=== PATIENT | male | born 1965 | race Caucasian/White ===

== ENCOUNTER 2019-11-09 09:12 | Emergency (ER) | payer MEDICAID ==
--- NOTE | 2019-11-09 09:45 | EDM.PDOC ---
ED HPI GENERAL MEDICAL PROBLEM - General Chief Complaint: Abdominal Pain Stated Complaint: ABDOMINAL PAIN Time Seen by Provider: 11/09/19 09:28 Source of Information: Reports: Patient History Limitations: Reports: No Limitations - History of Present Illness INITIAL COMMENTS - FREE TEXT/NARRATIVE: The patient presents with left sided abdominal pain that started last night. He says it feels like he has a pulled muscle. He had similar pain after surgery for a ventral hernia. He has no nausea or vomiting. He still has his gallbladder and appendix. He has no fever or chills. He has no dysuria or hematuria. Onset: Gradual Duration: Day(s): (Last night) Location: Reports: Abdomen Quality: Reports: Sharp Severity: Moderate Improves with: Reports: None Worsens with: Reports: None Associated Symptoms: Reports: No Other Symptoms Left Abdominal Pain Score (Numeric/FACES): 8 - Related Data Allergies Allergy/AdvReac Type Severity Reaction Status Date / Time No Known Allergies Allergy Verified 11/09/19 09:28 Home Meds: Home Meds Amoxicillin/Potassium Clav [Augmentin 875-125 Tablet] 1 each PO BID #14 tablet 11/09/19 [Rx] Aspirin 11/09/19 [History] Statin Cholesterol Medication 11/09/19 [History] Varenicline Tartrate [Chantix] 11/09/19 [History] metFORMIN [Glucophage XR] 11/09/19 [History] Social & Family History - Tobacco Use Smoking Status *Q: Current Every Day Smoker Years of Tobacco use: 38 Packs/Tins Daily: 0.1 - Caffeine Use Caffeine Use: Reports: Coffee, Energy Drinks, Soda, Tea - Recreational Drug Use Recreational Drug Use: No ED ROS GENERAL - Review of Systems Review Of Systems: See Below Constitutional: Reports: No Symptoms HEENT: Reports: No Symptoms Respiratory: Reports: No Symptoms Cardiovascular: Reports: No Symptoms Endocrine: Reports: No Symptoms GI/Abdominal: Reports: Abdominal Pain. Denies: Diarrhea, Nausea, Vomiting : Reports: No Symptoms Musculoskeletal: Reports: No Symptoms ED EXAM, GI/ABD - Physical Exam Exam: See Below Exam Limited By: No Limitations General Appearance: Alert, No Apparent Distress Ears: Normal External Exam Nose: Normal Inspection Head: Atraumatic, Normocephalic Neck: Normal Inspection Respiratory/Chest: No Respiratory Distress, Lungs Clear, Normal Breath Sounds Cardiovascular: Regular Rate, Rhythm, No Edema, No Murmur GI/Abdominal Exam: Soft, No Organomegaly, No Mass, Tender (Mild pain to the left lower abdomen) Course - Vital Signs Last Recorded V/S: Last Vital Signs Temp 96.2 F 11/09/19 09:25 Pulse 73 11/09/19 09:25 Resp 16 11/09/19 09:25 BP 131/80 11/09/19 09:25 Pulse Ox 97 11/09/19 09:25 - Orders/Labs/Meds Orders: Active Orders 24 hr Category Date Time Status Peripheral IV Care [RC] . DIRECTED Care 11/09/19 09:49 Active Ketorolac [Toradol] Med 11/09/19 12:37 Once 30 mg IVPUSH ONETIME ONE Sodium Chloride 0.9% [Saline Flush] Med 11/09/19 09:49 Active 10 ml FLUSH ASDIRECTED PRN Sodium Chloride 0.9% [Saline Flush] Med 11/09/19 10:01 Active 10 ml FLUSH ONETIME PRN ED Antiemetic Medication Reflex [OM.PC] Stat Oth 11/09/19 09:50 Ordered Peripheral IV Insertion Adult [OM.PC] Stat Oth 11/09/19 09:49 Ordered Medication Orders Ketorolac Tromethamine (Toradol) 30 mg IVPUSH ONETIME ONE Stop: 11/09/19 12:38 Sodium Chloride (Saline Flush) 10 ml FLUSH ASDIRECTED PRN PRN Reason: Keep Vein Open Last Admin: 11/09/19 10:08 Dose: 10 ml Sodium Chloride (Saline Flush) 10 ml FLUSH ONETIME PRN PRN Reason: IV FLUSH Last Admin: 11/09/19 11:15 Dose: 10 ml Labs: Laboratory Tests 11/09/19 11/09/19 11/09/19 Range/Units 10:00 10:00 11:43 WBC 9.74 H (4.23-9.07) K/mm3 RBC 5.26 (4.63-6.08) M/mm3 Hgb 15.4 (13.7-17.5) gm/dl Hct 45.9 (40.1-51.0) % MCV 87.3 D (79.0-92.2) fl MCH 29.3 (25.7-32.2) pg MCHC 33.6 (32.2-35.5) g/dl RDW Std Deviation 52.2 H (35.1-43.9) fL Plt Count 272 (163-337) K/mm3 MPV 10.5 (9.4-12.3) fl Neut % (Auto) 68.8 H (34.0-67.9) % Lymph % (Auto) 19.8 L (21.8-53.1) % [place] % (Auto) 7.6 (5.3-12.2) % Eos % (Auto) 3.0 (0.8-7.0) Baso % (Auto) 0.6 (0.1-1.2) % Neut # (Auto) 6.70 H (1.78-5.38) K/mm3 Lymph # (Auto) 1.93 (1.32-3.57) K/mm3 [place] # (Auto) 0.74 (0.30-0.82) K/mm3 Eos # (Auto) 0.29 (0.04-0.54) K/mm3 Baso # (Auto) 0.06 (0.01-0.08) K/mm3 Sodium 143 (136-145) mEq/L Potassium 4.2 (3.5-5.1) mEq/L Chloride 107 (98-107) mEq/L Carbon Dioxide 27 (21-32) mEq/L Anion Gap 13.2 (5-15) BUN 13 (7-18) mg/dL Creatinine 0.8 (0.7-1.3) mg/dL Est Cr Clr Drug Dosing 79.63 mL/min Estimated GFR (MDRD) > 60 (>60) mL/min BUN/Creatinine Ratio 16.3 (14-18) Glucose 97 (74-106) mg/dL Calcium 8.9 (8.5-10.1) mg/dL Total Bilirubin 0.3 (0.2-1.0) mg/dL AST 17 (15-37) U/L ALT 44 (16-63) U/L Alkaline Phosphatase 96 (46-116) U/L Total Protein 7.7 (6.4-8.2) g/dl Albumin 3.5 (3.4-5.0) g/dl Globulin 4.2 gm/dL Albumin/Globulin Ratio 0.8 L (1-2) Lipase 63 L (73-393) U/L Urine Color Yellow (Yellow) Urine Appearance Clear (Clear) Urine pH 6.5 (5.0-8.0) Ur Specific [place] 1.020 (1.005-1.030) Urine Protein Trace H (Negative) Urine Glucose (UA) Negative (Negative) Urine Ketones Negative (Negative) Urine Occult Blood Trace-intact H (Negative) Urine Nitrite Negative (Negative) Urine Bilirubin Negative (Negative) Urine Urobilinogen 0.2 (0.2-1.0) Ur Leukocyte Esterase Negative (Negative) Urine RBC 5-10 H (0-5) /hpf Urine WBC 0-5 (0-5) /hpf Ur Squamous Epith Cells 0-5 (0-5) /hpf Urine Bacteria Few (FEW) /hpf Urine Mucus Few (FEW) /hpf Meds: Medications Generic Name Dose Route Start Last Admin Trade Name Freq PRN Reason Stop Dose Admin Ketorolac Tromethamine 30 mg 11/09/19 12:37 Toradol IVPUSH 11/09/19 12:38 ONETIME ONE Sodium Chloride 10 ml 11/09/19 09:49 11/09/19 10:08 Saline Flush FLUSH 10 ml ASDIRECTED PRN Administration Keep Vein Open Sodium Chloride 10 ml 11/09/19 10:01 11/09/19 11:15 Saline Flush FLUSH 10 ml ONETIME PRN Administration IV FLUSH Discontinued Medications Generic Name Dose Route Start Last Admin Trade Name Freq PRN Reason Stop Dose Admin Diatrizoate Meglum/Diatrizoate Sod 120 ml 11/09/19 10:01 11/09/19 11:15 Gastrografin 37% PO 11/09/19 10:02 90 ml ONETIME ONE Administration Hydromorphone HCl 1 mg 11/09/19 09:51 11/09/19 10:08 Dilaudid IVPUSH 11/09/19 09:52 1 mg ONETIME ONE Administration Sodium Chloride 1,000 mls @ 1,000 mls/hr 11/09/19 09:49 11/09/19 10:06 Normal Saline IV 11/09/19 10:48 1,000 mls/hr .BOLUS STA Administration Iopamidol 100 ml 11/09/19 10:01 11/09/19 11:14 Isovue-300 (61%) IVPUSH 11/09/19 10:02 100 ml ONETIME ONE Administration Ondansetron HCl 4 mg 11/09/19 09:49 11/09/19 10:05 Zofran IVPUSH 11/09/19 09:50 4 mg ONETIME ONE Administration - Re-Assessments/Exams Free Text/Narrative Re-Assessment/Exam: 11/09/19 12:41 I ordered an IV NS 1L bolus, zofran 4mg IV, dilaudid 1mg IV, labs, UA and a CT of his abdomen and pelvis with IV and oral contrast. His WBC was elevated slightly at 9.74. His CMP looks good. His lipase is low at 63. His UA shows no UTI. His CT shows slight inflammatory change around a diverticuli within the descending colon suspicious for mild diverticulitis. Other findings as noted above believed to be incidental. He still has some pain. I gave him some tordal. 11/09/19 12:44 I will get him on some augmentin. Departure - Departure Time of Disposition: 12:45 Disposition: Home, Self-Care 01 Condition: Good Clinical Impression: Diverticulitis - Discharge Information *PRESCRIPTION DRUG MONITORING PROGRAM REVIEWED*: Not Applicable *COPY OF PRESCRIPTION DRUG MONITORING REPORT IN PATIENT ANDRÉS: Not Applicable Prescriptions: Amoxicillin/Potassium Clav [Augmentin 875-125 Tablet] 1 each PO BID #14 tablet Referrals: Carol Ann Casas, TIKI [Primary Care Provider] - 1 Week Forms: ED Department Discharge Additional Instructions: Take the augmentin daily for 7 days. Avoid any food with small nuts or seeds. Take tylenol or motrin for pain. If that does not work, try the hydrocodone. Please return if you are worse. Sepsis Event Note - Evaluation Sepsis Screening Result: No Definite Risk - Focused Exam Vital Signs: Vital Signs Temp Pulse Resp BP Pulse Ox 11/09/19 09:25 96.2 F 73 16 131/80 97 Date Exam was Performed: 11/09/19 Time Exam was Performed: 12:37 - My Orders Last 24 Hours: My Active Orders 11/09/19 09:49 Peripheral IV Care [RC] . DIRECTED Sodium Chloride 0.9% [Saline Flush] 10 ml FLUSH ASDIRECTED PRN Peripheral IV Insertion Adult [OM.PC] Stat 11/09/19 09:50 ED Antiemetic Medication Reflex [OM.PC] Stat 11/09/19 10:01 Sodium Chloride 0.9% [Saline Flush] 10 ml FLUSH ONETIME PRN 11/09/19 12:37 Ketorolac [Toradol] 30 mg IVPUSH ONETIME ONE - Assessment/Plan Last 24 Hours: My Active Orders 11/09/19 09:49 Peripheral IV Care [RC] . DIRECTED Sodium Chloride 0.9% [Saline Flush] 10 ml FLUSH ASDIRECTED PRN Peripheral IV Insertion Adult [OM.PC] Stat 11/09/19 09:50 ED Antiemetic Medication Reflex [OM.PC] Stat 11/09/19 10:01 Sodium Chloride 0.9% [Saline Flush] 10 ml FLUSH ONETIME PRN 11/09/19 12:37 Ketorolac [Toradol] 30 mg IVPUSH ONETIME ONE
[2019-11-09] MEDS ORDERED: Ondansetron 4 MG/2 ML SDV IVPUSH ONE (09:49)
[2019-11-09] MEDS ORDERED: Sodium Chloride 0.9% 10 ML Syringe FLUSH PRN ×2 (09:49→10:01)
[2019-11-09] MEDS ORDERED: Sodium Chloride 0.9% 1,000 ML IV STA (09:49)
[2019-11-09] MEDS ORDERED: HYDROmorphone 1 MG/ML Syringe IVPUSH ONE (09:51)
[2019-11-09] MEDS ORDERED: Iopamidol 612 MG/ML 100 ML Bottle IVPUSH ONE (10:01)
[2019-11-09] MEDS ORDERED: Diatrizoate Meglumine/Diatrizoate Sodium 37% 120 ML Bottle PO ONE (10:01)
--- NOTE | 2019-11-09 12:13 | CT ---
CT abdomen and pelvis Technique: Multiple axial sections were obtained from above the dome of the diaphragm inferiorly through the pubic symphysis. Intravenous and oral contrast was utilized. Delayed images were also obtained through the bladder. Comparison: No prior abdominal imaging is available. Findings: Visualized lung bases show a small pleural-based nodule measuring 3 mm. This is likely incidental. Small amount of extrapleural fat is noted posteriorly within both lung bases which is incidental. Fatty infiltration is noted within the liver. No focal abnormality is appreciated within the liver. Spleen appears within normal limits. Adrenal glands show no nodule. Pancreas is within normal limits. Gallbladder contains no calcified gallstones. Kidneys show symmetric contrast enhancement without hydronephrosis or mass. Aorta shows no aneurysm. No retroperitoneal adenopathy or mesenteric abnormalities are seen. Appendix is seen which is normal in size. No pelvic mass or adenopathy is seen. No free fluid is seen. Diverticuli are seen within the descending and sigmoid colon. Slight inflammatory change is seen around the diverticuli within the distal descending colon suspicious for diverticulitis. No additional inflammatory change is seen. Delayed images shows contrast within two left-sided ureters which join distally. Single right-sided opacified ureter is seen. Contrast is noted within the bladder. Bone window settings were reviewed which show spondylotic defects at L5-S1 with minimal spondylolisthesis. Disc at L5-S1 shows vacuum phenomena. Other less prominent degenerative change is scattered within the spine. Impression: 1. Slight inflammatory change around a diverticuli within the descending colon suspicious for mild diverticulitis. 2. Other findings as noted above believed to be incidental. Diagnostic code #3 This report was dictated in [place] Standard Time
[2019-11-09] MEDS ORDERED: Ketorolac 30 MG/ML SDV IVPUSH ONE (12:37)
== END 2019-11-09 12:54 | disposition home or self-care (01) ==
LOC: JD.ED 09:12
DX: K57.32 Diverticulitis of large intestine without perforation or abscess without bleeding (principal); F17.210 Nicotine dependence, cigarettes, uncomplicated; Z79.82 Long term (current) use of aspirin
CPT/HCPCS: 36415; 74177; 80053; 81001; 83690; 85025; 96361; 96374; 96375; 99284; J1170; J1885; J2405; J7030; Q9963; Q9967

== ENCOUNTER 2020-01-18 09:40 | Day surgery (SDC) | payer MEDICAID ==
[~2020-01-18 09:40] MED LIST: Lactated Ringers 1,000 ML IV SCH; Lidocaine 1%/Sod Bicarbonate in NS 8.4% 1 ML Syringe IDERM PRN; Sodium Chloride 0.9% 10 ML Syringe FLUSH PRN
--- NOTE | 2020-01-18 10:03 | PCM.PREANE ---
Preanesthetic Assessment - Anesthesia/Transfusion/Family Hx Anesthesia History: Prior Anesthesia Without Reaction Family History of Anesthesia Reaction: No Transfusion History: No Prior Transfusion(s) Intubation History: Unknown - Review of Systems General: No Symptoms Pulmonary: No Symptoms (Smoker:2 ppd times 30 years STEPHANIE: BIPAP COPD: patient denies use of albuterol) Cardiovascular: No Symptoms, Dyspnea on Exertion Gastrointestinal: No Symptoms Neurological: No Symptoms Other: Reports: Easy Bruising, Diabetes (BS @ 1015 =92), Liver Problems ( History of fatty liver), Neck Pain - Physical Assessment NPO Status Date: 01/17/20 NPO Status Time: 08:00 Vital Signs: HR: 62 BP: 129/81 Sat: 96% Temp: 97.6 Resp: 20 Height: 1.78 m Weight: 140.16 kg ASA Class: 3 Mental Status: Alert & Oriented x3 Airway Class: Mallampati = 2 Dentition: Reports: Edentulous Thyro-Mental Finger Breadths: 3 Mouth Opening Finger Breadths: 3 ROM/Head Extension: Full Lungs: Clear to Auscultation, Normal Respiratory Effort Cardiovascular: Regular Rate, Regular Rhythm, No Murmurs - Lab Values: All labs reviewed and noted and within acceptable ranges to proceed with scheduled procedure. - Imaging/EKG Impressions: EKG: SR low voltage in precordial leads rate=74 Echocardiogram: EF: 55-60%, technically very difficult study due to body habitus , and inability to lie still. - Allergies Allergies/Adverse Reactions: Allergies Allergy/AdvReac Type Severity Reaction Status Date / Time No Known Allergies Allergy Verified 11/09/19 09:28 - Anesthesia Plan Pre-Op Medication Ordered: None - Acknowledgements Anesthesia Type Planned: MAC Pt an Appropriate Candidate for the Planned Anesthesia: Yes Alternatives and Risks of Anesthesia Discussed w Pt/Guardian: Yes Pt/Guardian Understands and Agrees with Anesthesia Plan: Yes PreAnesthesia Questionnaire Cardiovascular History: Reports: High Cholesterol Endocrine/Metabolic History: Reports: Other (See Below) Other Endocrine/Metabolic History: prediabetic - pt is on metformin - Past Surgical History GI Surgical History: Reports: Hernia, Abdominal - HOME MEDS Home Medications: Home Meds Amoxicillin/Potassium Clav [Augmentin 875-125 Tablet] 1 each PO BID #14 tablet 11/09/19 [Rx] Aspirin 11/09/19 [History] Statin Cholesterol Medication 11/09/19 [History] Varenicline Tartrate [Chantix] 11/09/19 [History] metFORMIN [Glucophage XR] 11/09/19 [History] - CURRENT (IN HOUSE) MEDS Current Meds: Current Medications Lactated Ringer's (Ringers, Lactated) 1,000 mls @ 125 mls/hr IV ASDIRECTED DEREK Stop: 01/18/20 23:00 Lidocaine/Sodium Bicarbonate (Buffered Lidocaine 1% In Ns 8.4%) 0.25 ml IDERM ONETIME PRN PRN Reason: Prior to IV Start Stop: 01/18/20 18:00 Sodium Chloride (Saline Flush) 10 ml FLUSH ASDIRECTED PRN PRN Reason: Keep Vein Open Stop: 01/18/20 18:00
[2020-01-18] MEDS ORDERED: Lidocaine 1% 4 ML ONE (12:14)
[2020-01-18] MEDS ORDERED: Midazolam 1 MG/ML 2 ML SDV ONE (12:14)
[2020-01-18] MEDS ORDERED: Propofol 200 MG/20 ML SDV ONE ×2 (12:14→12:42)
[2020-01-18] MEDS ORDERED: fentaNYL 100 MCG/2 ML SDV ONE ×2 (12:14→12:59)
[2020-01-18] MEDS ORDERED: Ketamine 500 mg/10 ML MDV ONE (12:26)
[2020-01-18] MEDS ORDERED: Lidocaine 1% with EPINEPHrine 1:100,000 20 ML MDV ONE (12:27)
[2020-01-18] MEDS ORDERED: Labetalol 100 MG/20 ML MDV ONE (12:56)
--- NOTE | 2020-01-18 13:34 | PCM48HPAN ---
Post Anesthesia Note - EVALUATION WITHIN 48HRS OF ANESTHETIC Vital Signs in Normal Range: Yes Patient Participated in Evaluation: Yes Respiratory Function Stable: Yes Airway Patent: Yes Cardiovascular Function Stable: Yes Hydration Status Stable: Yes Pain Control Satisfactory: Yes Nausea and Vomiting Control Satisfactory: Yes Mental Status Recovered: Yes Vital Signs: Last Vital Signs Temp 36.4 C 01/18/20 09:50 Pulse 62 01/18/20 09:50 Resp 20 01/18/20 09:50 BP 129/81 01/18/20 09:50 Pulse Ox 96 01/18/20 09:50
--- NOTE | 2020-01-18 14:04 | PROC ---
DATE OF OPERATION: 01/18/2020 SURGEON: Ran Murray MD PREOPERATIVE DIAGNOSES: 1. Need for screening colonoscopy. 2. Symptomatic perianal skin tag. POSTOPERATIVE DIAGNOSES: 1. Diverticulosis. 2. Grade 2 hemorrhoids. 3. Polyps x3. OPERATION PERFORMED: 1. Colonoscopy with polypectomy. 2. Excision of anal skin tag. ESTIMATED BLOOD LOSS: Minimal. ANESTHESIA: Local anesthetic with monitored anesthesia care. INDICATIONS AND CONSENT: The patient is a 54-year-old male with history of morbid obesity and obstructive sleep apnea. The patient has been wanting to have a screening colonoscopy for a long time, but he has been unable to do that because he needed clearance from his ice scraper. He eventually saw the ice scraper and got cleared for surgery. We saw the patient, discussed the risks, benefits, and alternatives for colonoscopy. All questions were answered. Of note, the patient mentioned that he had a symptomatic anal tag that causes some bleeding and it is difficult to keep clean because of this tag. Therefore, he requested that this tag be removed. We also talked about risks, benefits, and alternatives for this procedure and informed consent for both procedures was signed. DETAILS OF THE PROCEDURE: The patient was taken to the operating room, placed in a left lateral decubitus position. Following induction of monitored anesthesia care, we began with perianal exam. There was a skin tag at 6 to 8 o'clock position in the anal canal. Otherwise, perianal exam was normal. Digital rectal exam was normal. Scope was inserted and taken all the way to the cecum and the appendiceal orifice and ileocecal valve were photographed. Prep was adequate to be able to visualize polyps greater than 5 mm. Therefore, with irrigation, the cecum was examined. There was one 4 mm polyp that was removed with cold snare. The rest of the cecum was normal. The hepatic flexure had one 1 cm polyp that was pedunculated. This was removed with hot snare. Then, withdrawal continues. At the transverse colon, there was another 1 cm pedunculated polyp that was removed with hot snare. EBL was minimal. Descending colon and sigmoid colon had scattered diverticulosis. On retroflexion, the rectum had grade 2 to grade 3 hemorrhoids. There was no stigmata of bleeding. There were no other lesions. The air was suctioned from the colon and the scope was withdrawn. Next, we began prepping for excision of anal skin tag. To do this, the perianal skin was prepped with Betadine. We changed into sterile gloves. The 1% lidocaine with epinephrine was injected around this lesion. Then, a #15 blade was used to excise the lesion. Hemostasis was controlled with silver nitrate enough to be able to place some sutures. 2-0 chromic sutures were used to suture this wound, closed in 1 layer. The defect was about 1.5 cm x 2 cm. Once the sutures were placed, hemostasis was ensured and this marked the end of the procedure. At the end of the procedure, all instruments were correct and were disposed off appropriately. The patient to be allowed to discharge home. The patient to come back in 2 weeks for postop check. In the meantime, the patient to do sitz baths and take stool softeners. The patient can call to my clinic with any problems. MAAME /[id number] SHAY
== END 2020-01-18 14:09 | disposition home or self-care (01) ==
LOC: JD.SDS 09:40
PROVIDERS: ATTEND Surgery
DX: Z12.11 Encounter for screening for malignant neoplasm of colon (principal); D12.0 Benign neoplasm of cecum; D12.3 Benign neoplasm of transverse colon; K57.30 Diverticulosis of large intestine without perforation or abscess without bleeding; K64.4 Residual hemorrhoidal skin tags; K64.2 Third degree hemorrhoids; E11.9 Type 2 diabetes mellitus without complications; E78.5 Hyperlipidemia, unspecified; E66.01 Morbid (severe) obesity due to excess calories; F17.210 Nicotine dependence, cigarettes, uncomplicated; Z99.89 Dependence on other enabling machines and devices; Z79.899 Other long term (current) drug therapy; Z79.82 Long term (current) use of aspirin; Z79.84 Long term (current) use of oral hypoglycemic drugs
CPT/HCPCS: 45385; 82962; J2001; J2250; J2704; J3010; J3490; J7120; 00812

== ENCOUNTER 2021-05-17 14:00 | Emergency (ER) | payer MEDICAID ==
[2021-05-17] MEDS ORDERED: Ketorolac 30 MG/ML SDV IM ONE (15:34)
[2021-05-17] MEDS ORDERED: Cyclobenzaprine 10 MG Tab PO ONE (15:34)
--- NOTE | 2021-05-17 16:01 | EDM.PDOC ---
ED HPI GENERAL MEDICAL PROBLEM - General Chief Complaint: Back Pain or Injury Stated Complaint: LT SHOULDER PAIN Time Seen by Provider: 05/17/21 15:06 Source of Information: Reports: Patient History Limitations: Reports: No Limitations - History of Present Illness INITIAL COMMENTS - FREE TEXT/NARRATIVE: 55 yo M with L mid back pain. Started gradually this morning and is now severe. No apparent provoking factor - no heavy lifting or unusual exercise, no recent trauma, pain gradually worsened over the course of today. Pain is worse with movements and worse with deep inspiration. No anterior chest pain. No hx similar symptoms previously. Did not take anything for pain prior to comingto the ED, did take a shot of whiskey. Denies fever/recent illness, +chronic cough/no jaeger e. Treatments ELECTRICAL ESTIMATOR: Reports: Other Medication(s) Other Treatments ELECTRICAL ESTIMATOR: whiskey Left Posterior Shoulder Pain Score (Numeric/FACES): 9 - Related Data Allergies Allergy/AdvReac Type Severity Reaction Status Date / Time No Known Allergies Allergy Verified 05/17/21 15:00 Home Meds: Home Meds Aspirin 81 mg PO DAILY 11/09/19 [History] metFORMIN [Glucophage XR] 1,000 mg PO BID 11/09/19 [History] Albuterol Sulfate [Albuterol Sulfate Hfa] 1 puff INH ASDIRECTED 01/18/20 [History] atorvaSTATin Calcium [Lipitor] 40 mg PO DAILY 01/18/20 [History] Cyclobenzaprine [Flexeril] 10 mg PO TID PRN #12 tab 05/17/21 [Rx] Ibuprofen 600 mg PO TID PRN #24 tablet 05/17/21 [Rx] Lidocaine/Transparent Dressing [Lidocaine 4% Kit] 1 each TP DAILY PRN #10 kit 05/17/21 [Rx] Past Medical History HEENT History: Reports: None Cardiovascular History: Reports: High Cholesterol Respiratory History: Reports: Sleep Apnea Gastrointestinal History: Reports: None Genitourinary History: Reports: None Musculoskeletal History: Reports: None Neurological History: Reports: None Psychiatric History: Reports: None Endocrine/Metabolic History: Reports: Other (See Below) Other Endocrine/Metabolic History: prediabetic - pt is on metformin Hematologic History: Reports: None Immunologic History: Reports: None Oncologic (Cancer) History: Reports: None Dermatologic History: Reports: None - Infectious Disease History Infectious Disease History: Reports: None - Past Surgical History Head Surgeries/Procedures: Reports: None HEENT Surgical History: Reports: Oral Surgery GI Surgical History: Reports: Hernia, Abdominal Social & Family History - Family History Family Medical History: No Pertinent Family History - Tobacco Use Tobacco Use Status *Q: Current Every Day Tobacco User Years of Tobacco use: 30 Packs/Tins Daily: 1 - Caffeine Use Caffeine Use: Reports: Coffee, Energy Drinks, Soda, Tea - Recreational Drug Use Recreational Drug Use: Yes Drug Use in Last 12 Months: No Recreational Drug Type: Reports: Marijuana/Hashish, Methamphetamine Recreational Drug Use Frequency: Not Used In Over 1 Year ED ROS GENERAL - Review of Systems Review Of Systems: See Below Constitutional: Denies: Fever HEENT: Denies: No Symptoms Respiratory: Denies: Shortness of Breath, Cough Cardiovascular: Denies: Chest Pain Endocrine: Reports: No Symptoms GI/Abdominal: Denies: Abdominal Pain Musculoskeletal: Reports: Back Pain Skin: Reports: No Symptoms Neurological: Reports: No Symptoms ED EXAM, GENERAL - Physical Exam Exam: See Below Exam Limited By: No Limitations General Appearance: Alert, WD/WN, No Apparent Distress Eye Exam: Bilateral Eye: Normal Inspection Course - Vital Signs Last Recorded V/S: Last Vital Signs Temp 36.6 C 05/17/21 15:06 Pulse 70 05/17/21 15:06 Resp 20 05/17/21 15:06 BP 146/82 H 05/17/21 15:06 Pulse Ox 99 05/17/21 15:06 - Orders/Labs/Meds Orders: Active Orders 24 hr Category Date Time Status Chest 2V [CR] Stat Exams 05/17/21 15:34 Taken Meds: Medications Discontinued Medications Generic Name Dose Route Start Last Admin Trade Name Grabiel PRN Reason Stop Dose Admin Bupivacaine HCl 10 ml 05/17/21 17:28 05/17/21 17:29 Bupivacaine 0.5% 10 Ml Sdv INJECT 05/17/21 17:29 10 ml ONETIME ONE Administration Bupivacaine HCl Confirm 05/17/21 17:25 05/17/21 17:30 Bupivacaine 0.5% 10 Ml Sdv Administered 05/17/21 17:26 10 ml Dose Administration 10 ml .ROUTE .STK-MED ONE Bupivacaine HCl/Epinephrine Bitart 30 ml 05/17/21 17:13 05/17/21 17:30 Bupivacaine 0.5%/Epinephrine 1:200,000 30 Ml Sdv INJECT 05/17/21 17:14 Not Given ONETIME ONE Cyclobenzaprine HCl 10 mg 05/17/21 15:34 05/17/21 15:54 Cyclobenzaprine 10 Mg Tab PO 05/17/21 15:35 10 mg ONETIME ONE Administration Ketorolac Tromethamine 30 mg 05/17/21 15:34 05/17/21 15:55 Ketorolac 30 Mg/Ml Sdv IM 05/17/21 15:35 30 mg ONETIME ONE Administration Lidocaine 1 each 05/17/21 16:30 05/17/21 16:30 Lidocaine 4% 1 Each Patch TOP 05/17/21 16:31 1 each ONETIME ONE Administration Lidocaine/Epinephrine 10 ml 05/17/21 17:14 05/17/21 17:31 Lidocaine 2% With Epinephrine 1:200,000 20 Ml Sdv INJECT 05/17/21 17:15 Not Given ONETIME ONE Lidocaine/Epinephrine Confirm 05/17/21 17:25 05/17/21 17:29 Lidocaine 1% With Epinephrine 1:100,000 10 Ml Mdv Administered 05/17/21 17:26 10 ml Dose Administration 10 ml .ROUTE .[facility] ONE - Re-Assessments/Exams Free Text/Narrative Re-Assessment/Exam: 05/17/21 16:35 CXR shows no acute abnormality. Suspect musculoskeletal source of pain. Pain is very localized to posterior parathoracic musculature. Discussed home care with patient and ED return precautions. 05/17/21 17:24 Patient is still in significant pain. He has very specific point TTP in posterior thoracic paraspinal musculature around T10 level. Discussed risks/benefits of trigger point injection and patient would like to proceed. Procedure of Area of maximal pain identified. Skin cleansed with chlorprep. Injected bupivicaine 0.5% + lidocaine 1% with epi, approx 3 cc total. 05/17/21 17:55 05/17/21 18:28 Patient felt significantly better after trigger point injection. Rex addison, discussed ED return precautions. Departure - Departure Time of Disposition: 16:36 Disposition: Home, Self-Care 01 Clinical Impression: Strain of thoracic paraspinal muscles excluding T1 and T2 levels Qualifiers: Encounter type: initial encounter Qualified Code(s): S29.012A - Strain of muscle and tendon of back wall of thorax, initial encounter - Discharge Information Prescriptions: Cyclobenzaprine [Flexeril] 10 mg PO TID PRN #12 tab PRN Reason: Muscle Spasm - Painful Ibuprofen 600 mg PO TID PRN #24 tablet PRN Reason: Pain Lidocaine/Transparent Dressing [Lidocaine 4% Kit] 1 each TP DAILY PRN #10 kit PRN Reason: Pain Instructions: Thoracic Strain, [id number] Referrals: Carol Ann Casas BINDERY CUTTER OPERATOR [Primary Care Provider] - Forms: ED Department Discharge Sepsis Event Note (ED) - Evaluation Sepsis Screening Result: No Definite Risk - Focused Exam Vital Signs: Vital Signs Temp Pulse Resp BP Pulse Ox 05/17/21 15:06 36.6 C 70 20 146/82 H 99 - My Orders Last 24 Hours: My Active Orders 05/17/21 15:34 Chest 2V [CR] Stat - Assessment/Plan Last 24 Hours: My Active Orders 05/17/21 15:34 Chest 2V [CR] Stat
[2021-05-17] MEDS ORDERED: Lidocaine 4% 1 each Patch TOP ONE (16:30)
[2021-05-17] MEDS ORDERED: Bupivacaine 0.5%/EPINEPHrine 1:200,000 30 ML SDV INJECT ONE (17:13)
[2021-05-17] MEDS ORDERED: Lidocaine 2% with EPINEPHrine 1:200,000 20 ML SDV INJECT ONE (17:14)
[2021-05-17] MEDS ORDERED: Lidocaine 1% with EPINEPHrine 1:100,000 10 ML MDV ONE (17:25)
[2021-05-17] MEDS ORDERED: Bupivacaine 0.5% 10 ML SDV ONE (17:25)
[2021-05-17] MEDS ORDERED: Bupivacaine 0.5% 10 ML SDV INJECT ONE (17:28)
--- NOTE | 2021-05-18 08:06 | CR ---
Chest: 2 views of the chest were obtained. Comparison: No prior chest imaging is available. Heart size and mediastinum are normal. Lungs are clear with no acute parenchymal change. No acute osseous abnormality is appreciated. Impression: 1. Nothing acute is seen on 2 view chest x-ray. Diagnostic code #1
== END 2021-05-17 18:15 | disposition home or self-care (01) ==
LOC: JD.ED 14:00
DX: S29.012A Strain of muscle and tendon of back wall of thorax, initial encounter (principal); E78.00 Pure hypercholesterolemia, unspecified; Z79.82 Long term (current) use of aspirin; Z72.0 Tobacco use; Z79.899 Other long term (current) drug therapy; X50.9XXA Other and unspecified overexertion or strenuous movements or postures, initial encounter
CPT/HCPCS: 20552; 71046; 96372; 99283; A9270; J1885; J3490

== ENCOUNTER 2021-05-18 10:18 | Emergency (ER) | payer MEDICAID ==
[2021-05-18] MEDS ORDERED: Bupivacaine 0.5% 10 ML SDV INJECT ONE (10:45)
[2021-05-18] MEDS ORDERED: Lidocaine 1% with EPINEPHrine 1:100,000 10 ML MDV INJECT ONE (10:45)
--- NOTE | 2021-05-18 10:50 | EDM.PDOC ---
ED HPI GENERAL MEDICAL PROBLEM - General Chief Complaint: Upper Extremity Injury/Pain Stated Complaint: LT SHOULDER PAIN NOT BETTER Time Seen by Provider: 05/18/21 10:39 Source of Information: Reports: Patient History Limitations: Reports: No Limitations - History of Present Illness INITIAL COMMENTS - FREE TEXT/NARRATIVE: 55 yo M with L thoracic back pain, seen here yesterday, no known injury. Had gradual onset of pain in that area yesterday, became somewhat severe so came here. I did a trigger point injection yesterday and he had substantial relief - states pain nearly resolved and didn't come back until this morning. He is here today requesting another trigger point injection. Pain is once again sharp, located in mid left back underneath shoulder area. No additional complaint. No new symptoms. No chest pain/shortness of breath. Left Upper Back Pain Score (Numeric/FACES): 9 - Related Data Allergies Allergy/AdvReac Type Severity Reaction Status Date / Time No Known Allergies Allergy Verified 05/17/21 15:00 Home Meds: Home Meds Aspirin 81 mg PO DAILY 11/09/19 [History] metFORMIN [Glucophage XR] 1,000 mg PO BID 11/09/19 [History] Albuterol Sulfate [Albuterol Sulfate Hfa] 1 puff INH ASDIRECTED 01/18/20 [History] atorvaSTATin Calcium [Lipitor] 40 mg PO DAILY 01/18/20 [History] Cyclobenzaprine [Flexeril] 10 mg PO TID PRN #12 tab 05/17/21 [Rx] Ibuprofen 600 mg PO TID PRN #24 tablet 05/17/21 [Rx] Lidocaine/Transparent Dressing [Lidocaine 4% Kit] 1 each TP DAILY PRN #10 kit 05/17/21 [Rx] Past Medical History HEENT History: Reports: None Cardiovascular History: Reports: High Cholesterol Respiratory History: Reports: Sleep Apnea Gastrointestinal History: Reports: None Genitourinary History: Reports: None Musculoskeletal History: Reports: None Neurological History: Reports: None Psychiatric History: Reports: None Endocrine/Metabolic History: Reports: Other (See Below) Other Endocrine/Metabolic History: prediabetic - pt is on metformin Hematologic History: Reports: None Immunologic History: Reports: None Oncologic (Cancer) History: Reports: None Dermatologic History: Reports: None - Infectious Disease History Infectious Disease History: Reports: None - Past Surgical History Head Surgeries/Procedures: Reports: None HEENT Surgical History: Reports: Oral Surgery GI Surgical History: Reports: Hernia, Abdominal Social & Family History - Family History Family Medical History: No Pertinent Family History - Tobacco Use Tobacco Use Status *Q: Current Every Day Tobacco User Years of Tobacco use: 30 Packs/Tins Daily: 0.5 - Caffeine Use Caffeine Use: Reports: None - Recreational Drug Use Recreational Drug Use: No Review of Systems - Review of Systems Review Of Systems: See Below Constitutional: Denies: Fever Respiratory: Denies: Shortness of Breath Cardiovascular: Denies: Chest Pain Musculoskeletal: Reports: Back Pain, Muscle Pain Skin: Reports: No Symptoms Neurological: Reports: No Symptoms Psychiatric: Reports: No Symptoms ED EXAM, GENERAL - Physical Exam Exam: See Below Exam Limited By: No Limitations General Appearance: Alert, WD/WN, No Apparent Distress Eye Exam: Bilateral Eye: Normal Inspection Ears: Normal External Exam Nose: Normal Inspection Throat/Mouth: Normal Inspection Head: Atraumatic Neck: Normal Inspection, Supple, Non-Tender Respiratory/Chest: No Respiratory Distress GI/Abdominal: No Distention Back Exam: Normal Inspection, Other (+soft tissue/muscular TTP in same are of L paraspinal TTP inferior to scapula area, skin normal, no palpable mass, no midline T spine TTP ) Extremities: Normal Inspection Neurological: Alert, Oriented Psychiatric: Normal Affect, Normal Mood Skin Exam: Warm, Dry, Intact Course - Vital Signs Last Recorded V/S: Last Vital Signs Temp 36.3 C 05/18/21 10:30 Pulse 70 05/18/21 10:30 Resp 13 05/18/21 10:30 BP 149/66 H 05/18/21 10:30 Pulse Ox 95 05/18/21 10:30 - Orders/Labs/Meds Meds: Medications Discontinued Medications Generic Name Dose Route Start Last Admin Trade Name Freq PRN Reason Stop Dose Admin Bupivacaine HCl 10 ml 05/18/21 10:45 05/18/21 11:09 Bupivacaine 0.5% 10 Ml Sdv INJECT 05/18/21 10:46 10 ml ONETIME ONE Administration Lidocaine/Epinephrine 10 ml 05/18/21 10:45 05/18/21 11:09 Lidocaine 1% With Epinephrine 1:100,000 10 Ml Mdv INJECT 05/18/21 10:46 10 ml ONETIME ONE Administration - Re-Assessments/Exams Free Text/Narrative Re-Assessment/Exam: 05/18/21 10:49 Trigger point injection procedure note: area of maximal tenderness identified on upper back, inferior to the scapula, L thoracic paraspinal area. skin prepped with chlorhexadine. a 27 guage needle was used to inject a 50/50 mixure of marcaine and lidocaine into the soft tissues. patient had substantial relief after the procedure and will be discharged in improved condition. Departure - Departure Time of Disposition: 11:00 Disposition: Home, Self-Care 01 Clinical Impression: Musculoskeletal pain - Discharge Information Instructions: Musculoskeletal Pain Referrals: Carol Ann Casas NP [Primary Care Provider] - Forms: ED Department Discharge Additional Instructions: 1. Use heat on area of pain. Consider light massage in the area to relieve muscle spasm. Take ibuprofen/acetaminophen as advised. Follow up with your primary care provider as soon as possible for further care. Sepsis Event Note (ED) - Evaluation Sepsis Screening Result: No Definite Risk - Focused Exam Vital Signs: Vital Signs Temp Pulse Resp BP Pulse Ox 05/18/21 10:30 36.3 C 70 13 149/66 H 95
== END 2021-05-18 11:38 | disposition home or self-care (01) ==
LOC: JD.ED 10:18
DX: M54.6 Pain in thoracic spine (principal); E78.00 Pure hypercholesterolemia, unspecified; Z79.82 Long term (current) use of aspirin; Z79.899 Other long term (current) drug therapy; Z72.0 Tobacco use
CPT/HCPCS: 20552; 99283; J3490